=== PATIENT | male | born 1940 | race Caucasian/White ===

== ENCOUNTER 2022-06-03 11:14 | Day surgery (SDC) | payer OTHER ==
[2022-05-29 09:20] LABS: BASOPHILS # (AUTO) 0.1 X10'3 (0-0.2); BASOPHILS % (AUTO) 0.7 % (0-1); EOSINOPHILS # (AUTO) 0.1 X10'3 (0-0.9); EOSINOPHILS % (AUTO) 1.5 % (0-6); HEMATOCRIT 41.9 % (42.0-52.0); HEMOGLOBIN 14.8 g/dl (14.0-17.9); LYMPHOCYTES # (AUTO) 1.7 X10'3 (1.1-4.8); LYMPHOCYTES % (AUTO) 19.7 % (21-51); MEAN CORPUSCULAR HEMOGLOBIN 31.1 PG (27.0-31.0); MEAN CORPUSCULAR HGB CONC 35.5 g/dL (33.0-36.5); MEAN CORPUSCULAR VOLUME 87.7 FL (78-98); MEAN PLATELET VOLUME 7.3 FL (7.4-10.4); MONOCYTES # (AUTO) 0.7 X10'3 (0-0.9); MONOCYTES % (AUTO) 7.6 % (2-12); NEUTROPHILS # (AUTO) 6.1 X10'3 (1.8-7.7); NEUTROPHILS % (AUTO) 70.5 % (42-75); PLATELET COUNT 233 X10'3 (140-440); RED BLOOD COUNT 4.77 X10'6 (4.70-6.10); RED CELL DISTRIBUTION WIDTH 13.9 % (11.5-14.5); WHITE BLOOD COUNT 8.7 X10'3 (4.5-11.0)
[2022-05-29 09:33] LABS: APTT 27 SECONDS (22-32)
[2022-05-29 09:34] LABS: ALBUMIN 3.9 G/DL (3.4-5.0); ANION GAP 5 (8-16); BLOOD UREA NITROGEN 12 MG/DL (7-18); CALCIUM 9.3 MG/DL (8.5-10.1); CHLORIDE 100 MMOL/L (99-107); CHOL/HDL RATIO 1.8 (0.00-4.99); CHOLESTEROL 118 MG/DL (0-200); CREATININE 0.63 MG/DL (0.60-1.10); GLUCOSE 113 MG/DL (70-104); HDL CHOLESTEROL 67 MG/DL (35-60); LDL CHOLESTEROL 36 MG/DL (50-100); POTASSIUM 4.5 MMOL/L (3.5-5.1); SODIUM 133 MMOL/L (135-145); TOTAL CARBON DIOXIDE 27.6 MMOL/L (24-32); TRIGLYCERIDES 69 MG/DL (20-135); eGFR > 90 ML/MIN
[~2022-06-03] VITALS: Ht 185.4 cm; Wt 90.7 kg
[2022-06-03] VITALS (10 sets, daily range): BP systolic 111–155; BP diastolic 53–79
[2022-06-03] MEDS ORDERED: normal saline 1,000 ML IV SCH (11:40)
[2022-06-03] MEDS ORDERED: diphenhydrAMINE 25mg capsule PO PRN (11:40)
[2022-06-03] MEDS ORDERED: LORazepam 0.5 MG tablet PO PRN (11:40)
[2022-06-03] MEDS ORDERED: DOCU-342 PO (11:47)
[2022-06-03] MEDS ORDERED: TROS20TA4 PO (11:47)
[2022-06-03] MEDS ORDERED: ALPR1TAB7 PO (11:48)
[2022-06-03] MEDS ORDERED: ASCO500T20 PO (11:48)
[2022-06-03] MEDS ORDERED: FLEC100T PO (11:50)
[2022-06-03] MEDS ORDERED: PROP10TA10 PO (11:50)
[2022-06-03] MEDS ORDERED: LISI20TA28 PO (11:51)
[2022-06-03] MEDS ORDERED: ASPI-1397 PO (11:52)
[2022-06-03] MEDS ORDERED: MAGN420T PO (11:52)
[2022-06-03] MEDS ORDERED: LIDOcaine 1% (10mg/ml) 2ml vial ONE (12:05)
[2022-06-03] MEDS ORDERED: verapamil 2.5 mg/ml inj IV ONE (12:05)
[2022-06-03] MEDS ORDERED: heparin 1,000unit/ml 10ml vial 10 ML ONE (12:06)
[2022-06-03] MEDS ORDERED: midazolam 1 mg/ML 2ml injection ONE (12:06)
[2022-06-03] MEDS ORDERED: iohexol 350MG/ML 100ml bottle IV ONE (12:06)
[2022-06-03] MEDS ORDERED: fentaNYL/PF 50MCG/1 ML 2ML syringe ONE (12:06)
[2022-06-03] MEDS ORDERED: nitroGLYCERIN-Tridil 50MG/D5W 250 ML IV ONE (12:07)
[2022-06-03] MEDS ORDERED: LIDOcaine 1% 30ml preserv. free vial ONE (14:24)
[2022-06-03 14:43] LABS: ISTAT HGB ART 12.6 g/dl (14.0-17.9); ISTAT Hct ART 37 %PCV (42-52); ISTAT O2 SATURATION ARTERIAL 96 % (95-98); ISTAT SOURCE ART
[2022-06-03] MEDS ORDERED: HYDROcodone/acetaminophen 5mg/325mg tablet PO PRN (15:35)
[2022-06-03] MEDS ORDERED: HYDROcodone/acetaminophen 10/325mg tab PO PRN (15:35)
[2022-06-03 15:37] LABS: ISTAT Hct MIX 38 %PCV (42-52); ISTAT O2 SATURATION MIX VENOUS 72 % (60-80); ISTAT SOURCE VEN
== END 2022-06-03 19:11 | disposition home or self-care (01) ==
LOC: SSTAY O 11:14
PROVIDERS: ATTEND Student in an Organized Health Care Education/Training Program
DX: I35.0 Nonrheumatic aortic (valve) stenosis (principal); I25.10 Atherosclerotic heart disease of native coronary artery without angina pectoris; I48.0 Paroxysmal atrial fibrillation; J44.9 Chronic obstructive pulmonary disease, unspecified; I10 Essential (primary) hypertension; E78.5 Hyperlipidemia, unspecified; Z79.899 Other long term (current) drug therapy; Z88.1 Allergy status to other antibiotic agents; Z88.8 Allergy status to other drugs, medicaments and biological substances
CPT/HCPCS: 36415; 80048; 80061; 82803; 85014; 85025; 85610; 85730; 93456; 99152; C1760; C1769; C1894; J1644; J2250; J3010; J3490; J7030; Q0163; Q9967; 99153; C1725; C1751

== ENCOUNTER 2022-06-25 10:11 | Outpatient (CLI) | payer OTHER ==
[~2022-06-25 10:11] MED LIST: ALPR1TAB7 PO; ASCO500T20 PO; ASPI-1397 PO; DOCU-342 PO; FLEC100T PO; LISI20TA28 PO; MAGN420T PO; PROP10TA10 PO; TROS20TA4 PO
[2022-06-25 10:46] LABS: BASOPHILS % (AUTO) 0.4 % (0-1); EOSINOPHILS # (AUTO) 0.1 X10'3 (0-0.9); EOSINOPHILS % (AUTO) 0.8 % (0-6); HEMATOCRIT 41.4 % (42.0-52.0); HEMOGLOBIN 14.6 g/dl (14.0-17.9); LYMPHOCYTES # (AUTO) 1.3 X10'3 (1.1-4.8); LYMPHOCYTES % (AUTO) 13.2 % (21-51); MEAN CORPUSCULAR HEMOGLOBIN 30.9 PG (27.0-31.0); MEAN CORPUSCULAR HGB CONC 35.2 g/dL (33.0-36.5); MEAN CORPUSCULAR VOLUME 87.8 FL (78-98); MEAN PLATELET VOLUME 7.5 FL (7.4-10.4); MONOCYTES # (AUTO) 0.9 X10'3 (0-0.9); MONOCYTES % (AUTO) 8.6 % (2-12); NEUTROPHILS # (AUTO) 7.7 X10'3 (1.8-7.7); PLATELET COUNT 214 X10'3 (140-440); RED BLOOD COUNT 4.72 X10'6 (4.70-6.10); RED CELL DISTRIBUTION WIDTH 14.2 % (11.5-14.5)
[2022-06-25 10:57] LABS: APTT 28 SECONDS (22-32)
[2022-06-25 10:58] LABS: ALANINE AMINOTRANSFERASE 24 U/L (12-78); ALBUMIN 3.8 G/DL (3.4-5.0); ALBUMIN/GLOBULIN RATIO 1.1 (1.1-1.5); ALKALINE PHOSPHATASE 79 IU/L (46-116); ANION GAP 5 (8-16); ASPARTATE AMINO TRANSFERASE 25 U/L (10-37); BILIRUBIN,TOTAL 0.8 MG/DL (0.1-1.0); BLOOD UREA NITROGEN 11 MG/DL (7-18); BUN/CREATININE RATIO 17.7 (10.0-20.0); CHLORIDE 99 MMOL/L (99-107); CREATININE 0.62 MG/DL (0.60-1.10); GLUCOSE 88 MG/DL (70-104); POTASSIUM 4.6 MMOL/L (3.5-5.1); SODIUM 132 MMOL/L (135-145); TOTAL CARBON DIOXIDE 27.8 MMOL/L (24-32); TOTAL PROTEIN 7.2 G/DL (6.4-8.2); eGFR > 90 ML/MIN
[2022-06-25] MEDS ORDERED: IODIXANOL 320 MG/ML INFUS..BTL 100ML IV ONE (11:03)
== END 2022-06-25 23:59 | disposition home or self-care (01) ==
LOC: RAD 10:11
PROVIDERS: ATTEND Internal Medicine Cardiovascular Disease
DX: Z01.818 Encounter for other preprocedural examination (principal); I35.8 Other nonrheumatic aortic valve disorders; J43.9 Emphysema, unspecified; K57.30 Diverticulosis of large intestine without perforation or abscess without bleeding; N28.1 Cyst of kidney, acquired; K76.0 Fatty (change of) liver, not elsewhere classified; K40.90 Unilateral inguinal hernia, without obstruction or gangrene, not specified as recurrent; K42.9 Umbilical hernia without obstruction or gangrene; N43.3 Hydrocele, unspecified; M47.817 Spondylosis without myelopathy or radiculopathy, lumbosacral region; M47.814 Spondylosis without myelopathy or radiculopathy, thoracic region; I70.0 Atherosclerosis of aorta; I35.0 Nonrheumatic aortic (valve) stenosis; I65.29 Occlusion and stenosis of unspecified carotid artery
CPT/HCPCS: 36415; 71046; 71275; 74174; 80053; 85025; 85610; 85730; 94010; 94727; 94729; J3490; Q9967